=== PATIENT | female | born 1980 | race Caucasian/White ===

== ENCOUNTER 2025-02-27 13:42 | Emergency (ER) | payer OTHER, SELFPAY ==
[2025-02-27 14:00] VITALS: BP 107/73; PULSE 114; RESP 18; TEMP 37.3; O2SAT 97
--- NOTE | 2025-02-27 14:31 | ED_ITS ---
HPI - URI/Sore Throat General Chief Complaint: Upper Respiratory Infection Stated Complaint: Sore Throat/Bodyaches patient presents to the [facility] accompanied by spouse and service dog with complaints of cough shortness of breath, fatigue, nasal congestion, sore throat, headache, fever, and chills that began 2 days ago. Some [id number] cough cold medication attempted with temporary relief of symptoms. Patient does have an albuterol inhaler that she has been using as needed. Denies dizziness, nausea, vomiting, diarrhea, difficulty swallowing. Related Data Home Medications ?Medication ?Instructions ?Recorded ?Confirmed ?Last Taken ?Type albuterol sulfate 90 mcg/actuation inhalation 02/27/25 Unknown History aerosol inhaler loratadine 10 mg tablet (Claritin) 10 mg PO DAILY 02/15 09/08 Unknown History Allergies Allergy/AdvReac Type Severity Reaction Status Date / Time amoxicillin AdvReac Severe Anaphylaxis Verified 02/27/25 14:29 fish derived AdvReac Severe Anaphylaxis Verified 02/27/25 14:29 Penicillins AdvReac Severe Anaphylaxis Verified 02/27/25 14:29 shellfish derived AdvReac Severe Anaphylaxis Verified 02/27/25 14:29 sulfamethoxazole (From AdvReac Severe Anaphylaxis Verified 02/27/25 14:29 Bactrim) trimethoprim (From Bactrim) AdvReac Severe Anaphylaxis Verified 02/27/25 14:29 Review of Systems Constitutional: Constitutional: Reports as per HPI, Reports chills, Reports fatigue, Reports fever(s) and Denies weakness Eyes: Eyes: Reports no additional eye complaints ENT: Reports as per HPI, Denies vertigo, Denies dizziness, Reports nasal congestion and Reports sore throat Cardiovascular: Cardiovascular: Reports no additional cardiovascular complaints Respiratory: Respiratory: Reports as per HPI, Reports chest congestion, Reports cough, Denies dyspnea and Denies wheezing Gastrointestinal: Gastrointestinal: Reports as per HPI, Denies abdominal pain, Denies diarrhea, Denies nausea and Denies vomiting Genitourinary: Genitourinary: Reports no additional female genitourinary complaints Musculoskeletal: Musculoskeletal: Reports as per HPI and Reports myalgias Integumentary/Breasts: Skin/Breast: Reports as per HPI, Denies pruritus, Denies erythema, Denies rash and Denies skin ulcer Neurologic: Reports as per HPI, Denies vertigo, Denies dizziness and Reports headache(s) Psychiatric: Psychiatric: Reports no additional psychiatric complaints Endocrine: Endocrine: Reports no additional endocrine complaints Hematologic/Lymphatic: Hematologic/Lymphatic: Reports no additional hematologic/lymphatic complaints Allergic/Immunologic: Allergic/Immunologic: Reports no additional allergic/immunologic complaints Exam Const: General: no acute distress and ill appearing Nutritional Appearance: well nourished Orientation/consciousness: patient oriented x3 Limitations: no limitations HENMT: Head: normal to inspection Ears: external ears normal and TM's normal bilaterally Face/Nose/Sinus: Normal external nose present and Normal nares present Face and sinus: normal facial exam and sinuses nontender Mouth: Yes Normal oral and palatal mucosa present, Yes lip normal and Yes moist mucous membranes Throat: posterior oropharynx abnormal ( Moderate erythema and edema. No exudate) Eyes: Conjunctivae: conjunctivae normal Pupils: Equal, round and reactive pupils present EOM: EOMs intact bilaterally Direct Ophthalmoscopy: no photophobia Neck: Neck: normal visual inspection and no lymphadenopathy Chest: Chest palpation & inspection: normal inspection of the chest Resp: Effort & Inspection: normal respiratory effort Auscultation: clear to auscultation bilaterally Other: dry cough noted Cardio: Rate: tachycardic Rhythm: regular rhythm GI: GI Palp: Yes Soft to palpation, No Tenderness to palpation present (GI), No Guarding due to palpation present (GI) and No Rigid due to palpation Auscultation: normal bowel sounds Skin: General skin exam: normal color Rashes: no rashes Wounds: no wounds Neuro: General: patient oriented x3 Speech: normal speech Gait exam (Neuro): Normal gait present Extrem: General: no clubbing, cyanosis or edema and no pedal edema Psych: Mental Status: mental status grossly normal Affect: normal affect Attitude: cooperative Course Course Level of Care: Express Care Visit Vital Signs Vital signs: Vital Signs Temperature 99.2 F 02/27/25 14:00 Pulse Rate 114 H 02/27/25 14:00 Respiratory Rate 18 02/27/25 14:00 Blood Pressure 107/73 02/27/25 14:00 Pulse Oximetry 97 02/27/25 14:00 Oxygen Delivery Room Air 02/27/25 14:00 Temperature 99.2 F 02/27/25 14:00 Pulse Rate 114 H 02/27/25 14:00 Respiratory Rate 18 02/27/25 14:00 Blood Pressure 107/73 02/27/25 14:00 Pulse Oximetry 97 02/27/25 14:00 Oxygen Delivery Room Air 02/27/25 14:00 MDM - URI/Sore Throat MDM Narrative Medical decision making narrative: positive COVID and strep. The patient was evaluated by myself in the [facility]. History is obtained from patient who is an independent historian and physical exam was performed. Available medical records were reviewed at this time. Exam findings show no acute concerns or changes; patient is non-toxic appearing and is in no distress. Patient is appropriate for outpatient treatment and follow-up. I have evaluated and discussed social determinants of health with the patient that could potentially impact subsequent diagnosis and treatment plans. Differential diagnosis and treatment plan were discussed with the patient. Patient agrees with discussion and after shared medical decision making agrees with plan of care. All questions were answered to the patient's satisfaction. Differential Diagnosis Differential diagnosis: Likely upper respiratory infection, croup, otitis media, sinusitis, viral infection, bronchitis, influenza and pharyngitis Medical Records Attestation: I reviewed the patient's medical records. Lab Data Attestation: I reviewed the patient's lab results. Labs: Lab Results 02/27/25 Range/Units 14:32 POC Influenza A Ag Negative (Negative) POC Influenza B Ag Negative (Negative) POC SARS CoV-2 Ag Positive (Negative) POC Grp A Strep Screen Positive (Negative) Discharge Plan Discharge Clinical Impression: Strep pharyngitis, COVID Patient Disposition: Home Condition: Stable Instructions: Antibiotic Form, Strep Throat (ED), COVID-19 (Coronavirus Disease 2019) (ED) Additional Instructions: After 24 hours on antibiotics throw tooth brush away and start using a new one. Do not share drinks. Take Motrin alternating with Tylenol for pain and fever alternating every 4 hours. Increase fluids, avoid caffeine. Follow up with Primary provider if not getting better this week COVID-19 DISCHARGE The following recommendations have been made by the CDC and local Health Departments, regarding COVID-19: If You Test Positive for COVID-19 (Isolate) Everyone, regardless of vaccination status. Stay home for 5 days. If you have no symptoms or your symptoms are resolving after 5 days, you can leave your house. Continue to wear a mask around others for 5 additional days. If you have a fever, continue to stay home until your fever resolves. Common Adult Symptoms: Fever/chills Cough Shortness of breath Fatigue, muscle aches Headache Loss of taste/smell Sore throat, congestion, runny nose GI symptoms (nausea, vomiting, diarrhea) Common Pediatric Symptoms Cough Fever GI symptoms (diarrhea, upset stomach, nausea, vomiting) Symptoms may differ in severity however, most cases do not require hospitalization. WHEN TO SEEK ER EVALUATION/TREATMENT Severe/persistent shortness of breath or difficulty breathing Elevated, persistent fevers without resolution with fever-reducing medications Chest pain Extreme fatigue/lethargy Complications of pre-existing disease Patient Language: Cook Islander Prescriptions: New azithromycin 250 mg tablet See Rx Instructions .ROUTE .COMPLEX Qty: 6 0RF Rx Instructions: For 250 mg dose pack: take 500 mg today (day 1), then 250 mg for 4 days (days 2-5) Paxlovid 300 mg (150 mg x 2)-100 mg tablets,dose pack See Rx Instructions .ROUTE .COMPLEX Qty: 30 0RF Rx Instructions: take TWO 150 mg tablets of nirmatrelvir with ONE 100 mg tablet of ritonavir twice daily for 5 days No Action albuterol sulfate 90 mcg/actuation HFA aerosol inhaler INHALATION loratadine [Claritin] 10 mg tablet 10 mg PO DAILY Follow-up/Referrals: PHYSICIAN,ASSESSMENT CLINICIAN [Primary Care Provider, Internal Medicine] Stand Alone Forms: Work/School Release IP Time of Disposition: 14:40
[2025-02-27 14:34] LABS: EDCOVIDSCREEN Positive (Negative); EDINFLUASCREEN Negative (Negative); EDINFLUBSCREEN Negative (Negative); EDSTREPNEGPOS1 Positive (Negative)
== END 2025-02-27 14:58 | disposition home or self-care (01) ==
PROVIDERS: Emergency Provider Nurse Practitioner Family
DX: J02.0 Streptococcal pharyngitis (principal); U07.1 COVID-19
CPT/HCPCS: 87426; 87804; 87880; 99203; G0463

== ENCOUNTER 2025-03-19 09:33 | Emergency (ER) | payer OTHER, SELFPAY ==
--- NOTE | 2025-03-19 09:36 | ED_ITS ---
HPI - Back Pain/Injury General Chief Complaint: Back Pain/Injury Stated Complaint: Back Pain Time Seen by Provider: 03/19/25 09:57 Source: patient, RN notes reviewed and old records reviewed Mode of arrival: ambulatory Limitations: no limitations History of Present Illness HPI Narrative: 44-year-old female presents to the [facility] with complaints of back pain. Has history of chronic back pain, sciatic pain. States that she has had back pain in the past, increased last night. No loss retention of bowel or bladder. No midline tenderness. Patient able to changes positions without issue. No erythema, ecchymosis. No trauma. Related Data Home Medications ?Medication ?Instructions ?Recorded ?Confirmed ?Last Taken ?Type loratadine 10 mg tablet (Claritin) 10 mg PO DAILY 02/15 09/08 Unknown History Allergies Allergy/AdvReac Type Severity Reaction Status Date / Time amoxicillin AdvReac Severe Anaphylaxis Verified 03/19/25 10:04 fish derived AdvReac Severe Anaphylaxis Verified 03/19/25 10:04 Penicillins AdvReac Severe Anaphylaxis Verified 03/19/25 10:04 shellfish derived AdvReac Severe Anaphylaxis Verified 03/19/25 10:04 sulfamethoxazole (From AdvReac Severe Anaphylaxis Verified 03/19/25 10:04 Bactrim) trimethoprim (From Bactrim) AdvReac Severe Anaphylaxis Verified 03/19/25 10:04 Review of Systems Review of Systems: All systems reviewed & are unremarkable except as noted in HPI and below Constitutional: Constitutional: Reports no additional constitutional complaints ENT: Reports system reviewed and no additional complaints, except as documented Cardiovascular: Cardiovascular: Reports no additional cardiovascular complaints, Denies chest pain and Denies dyspnea Respiratory: Respiratory: Reports no additional respiratory complaints, Denies chest congestion, Denies cough and Denies dyspnea Musculoskeletal: Musculoskeletal: Reports as per HPI Integumentary/Breasts: Skin/Breast: Reports system reviewed and no additional complaints, except as docu PMFSH Comments At the time of my signature, I reviewed and agree with the nursing past medical, surgical, social, and family history. There is no relevant family history pertinent to the patient complaint. Exam Const: General: cooperative, healthy appearing, comfortable, no acute distress, well developed, alert and well nourished Nutritional Appearance: well nourished and obese Orientation/consciousness: patient oriented x3 Limitations: no limitations HENMT: Head: normal to inspection Eyes: General: appearance normal, both eyes and all related structures Alignment and Position: alignment normal Neck: Neck: normal visual inspection, full ROM, no lymphadenopathy and no meningeal signs Chest: Chest palpation & inspection: normal inspection of the chest Resp: Effort & Inspection: normal respiratory effort and able to speak in complete sentences Auscultation: clear to auscultation bilaterally, no crackles, no rales, no rhonchi and no wheezes Cardio: Rate: regular rate Back/Spine/Pelvis: Back: No erythema, No warmth, No sacral edema, No ecchymosis and back tenderness (Generalized lower back in into the hips.) Other: Patient is able to walk with a normal gait. Reports generalized tenderness to the lower back into the hip area. Patient was able to sit to stand stand to sit without issue. No erythema, ecchymosis, no trauma. Skin: General skin exam: normal color and no rashes or lesions noted Neuro: General: patient oriented x3, gait normal, moves all extremities and no meningeal signs Cognition (Neuro): normal cognition Speech: normal speech Gait exam (Neuro): Normal gait present Extrem: General: normal to inspection, full ROM, capillary refill normal and normal gait Psych: Appearance: grossly normal and well kempt Mental Status: mental status grossly normal Speech and movement: Normal speech and movement present and Clear speech present Affect: normal affect Attitude: cooperative Course Course Level of Care: Express Care Visit Vital Signs Vital signs: Vital Signs Temperature 98.1 F 03/19/25 09:46 Pulse Rate 65 03/19/25 09:46 Respiratory Rate 16 03/19/25 09:46 Blood Pressure 107/64 03/19/25 09:46 Pulse Oximetry 98 03/19/25 09:46 Oxygen Delivery Room Air 03/19/25 09:46 Temperature 98.1 F 03/19/25 09:46 Pulse Rate 65 03/19/25 09:46 Respiratory Rate 16 03/19/25 09:46 Blood Pressure 107/64 03/19/25 09:46 Pulse Oximetry 98 03/19/25 09:46 Oxygen Delivery Room Air 03/19/25 09:46 Reviewed MDM - Back Pain/Injury MDM Narrative Medical decision making narrative: Patient sitting in exam room. Patient is nontoxic vitals are stable. Patient presents with low back pain acute on chronic. No injury. Patient is requesting a work note for 3 days. Patient appropriate for outpatient treatment with close follow-up Discharge instructions reviewed with patient, as well as provided in writing per nursing staff. The instructions also include specific and strict return/GO TO THE ER as well as f/u information. All questions have been answered, and the patient deny any further questions with discharge and discharge plan. Some parts of this dictation were generated by voice recognition software and may contain typographical and/or grammatical inaccuracies. Differential Diagnosis Differential diagnosis: Likely lumbar radiculopathy, sciatica and strain of lumbar region Critical Care Time Critical Care Time Critical Care Time: No Discharge Plan Discharge Clinical Impression: Strain of lumbar region, Sciatica Patient Disposition: Home Condition: Stable Instructions: Antibiotic Form, Sciatica (ED), Lower Back Exercises (ED) Additional Instructions: Take ibuprofen as directed to decrease inflammation and to help pain. Take Flexeril (muscle relaxer) as directed. Do not drink, drive, operate machinery, or do anything dangerous while taking this medication Exercise:Combine aerobic exercise, like walking or swimming, with specific exercises to keep the muscles in your back and abdomen strong and flexible. Proper Lifting:Be sure to lift heavy items with your legs, not your back. Do not bend over to pick something up. Keep your back straight and bend at your knees. Weight:Maintain a healthy weight. Being overweight puts added stress on your lower back. Avoid Smoking:Both the smoke and the nicotine cause your spine to age faster than normal. Proper Posture:Good posture is important for avoiding future problems. A therapist can teach you how to safely stand, sit, and lift. Use warm moist heat to help with pain. Using topical such as Biofreeze, Kentrell-Spears or Aspercreme can also help Follow up with Primary provider in 2-3 days, This may become a chronic condition and they will be the one to help manage your pain and order additional testing. Go to the nearest ER if you develop problems with bladder/bowel function, weakness or loss of feeling in one or both of your legs. Patient Language: Luxembourger Prescriptions: New ibuprofen 600 mg tablet 600 mg PO TID PRN (Reason: fever or pain) Qty: 30 0RF cyclobenzaprine 10 mg tablet 10 mg PO TID PRN (Reason: muscle spasm) Qty: 15 0RF methylprednisolone [Medrol (Brant)] 4 mg tablets,dose pack See Rx Instructions PO .COMPLEX Qty: 21 0RF Rx Instructions: orally per package directions No Action loratadine [Claritin] 10 mg tablet 10 mg PO DAILY azithromycin 250 mg tablet See Rx Instructions .ROUTE .COMPLEX Qty: 6 0RF Rx Instructions: For 250 mg dose pack: take 500 mg today (day 1), then 250 mg for 4 days (days 2-5) Follow-up/Referrals: UNKNOWN,DOCTOR [Non-Staff] Stand Alone Forms: Work/School Release IP Time of Disposition: 10:23
[2025-03-19 09:46] VITALS: BP 107/64; PULSE 65; RESP 16; TEMP 36.7; O2SAT 98
== END 2025-03-19 10:28 | disposition home or self-care (01) ==
PROVIDERS: Emergency Provider Nurse Practitioner
DX: S39.012A Strain of muscle, fascia and tendon of lower back, initial encounter (principal); X58.XXXA Exposure to other specified factors, initial encounter; M54.32 Sciatica, left side; M54.31 Sciatica, right side; J45.909 Unspecified asthma, uncomplicated; Z86.16 Personal history of COVID-19
CPT/HCPCS: 99213; G0463

== ENCOUNTER 2025-04-09 09:49 | Emergency (ER) | payer OTHER, SELFPAY ==
--- NOTE | 2025-04-09 09:55 | ED.BACK ---
HPI - Back Pain/Injury General Chief Complaint: Back Pain/Injury Stated Complaint: back pain Time Seen by Provider: 04/09/25 09:56 Source: patient Mode of arrival: ambulatory Limitations: no limitations History of Present Illness HPI Narrative: Valery is a 44-year-old female patient presenting to the clinic today with complaints of thoracic back pain x1 day. She reports she lifted a tray yesterday that was not heavy and when she went to lift a tray she felt a pop in her back with instant pain. Has pain with any movement of the thoracic spine. States pain increases with movement and when taking the breaths. Denies any radiation of pain and arms or to lower back. No loss of bowel or bladder. Rates pain 10/10 currently. Pain is a dull ache with sharp pain with movement. Has not taken any medications for pain. Related Data Home Medications ?Medication ?Instructions ?Recorded ?Confirmed ?Last Taken ?Type loratadine 10 mg tablet (Claritin) 10 mg PO DAILY 02/27/25 Unknown History atorvastatin 20 mg tablet mg 04/09/25 Unknown History Allergies Allergy/AdvReac Type Severity Reaction Status Date / Time amoxicillin AdvReac Severe Anaphylaxis Verified 04/09/25 09:53 fish derived AdvReac Severe Anaphylaxis Verified 04/09/25 09:53 Penicillins AdvReac Severe Anaphylaxis Verified 04/09/25 09:53 shellfish derived AdvReac Severe Anaphylaxis Verified 04/09/25 09:53 sulfamethoxazole (From AdvReac Severe Anaphylaxis Verified 04/09/25 09:53 Bactrim) trimethoprim (From Bactrim) AdvReac Severe Anaphylaxis Verified 04/09/25 09:53 Review of Systems Review of Systems: Pertinent positives per HPI. Patient denies any fever, chills, rash, headache, visual changes, dizziness, cough, runny nose, sore throat, shortness of breath, chest pain, palpitations, nausea, vomiting, diarrhea, constipation, abdominal pain, or any urinary issues. PMFSH Comments At the time of my signature, I reviewed and agree with the nursing past medical, surgical, social, and family history. There is no relevant family history pertinent to the patient complaint. Exam Narrative: General: Well-developed, obese, in no apparent distress Head: Normocephalic, atraumatic. Cardio: Regular rate and rhythm, s1 and s2 normal, no murmur appreciated. Resp: Clear to auscultation bilaterally, no rhonchi, rales, wheezing or rubs. Musculoskeletal: No deformity, midthoracic spine and paraspinous musculature tender to palpation, grossly normal range of motion, pain worsens with movement or taking deep breaths, muscle strength strong and equal in bilateral upper and lower extremities. SLT negative, patellar reflexes 2/4 bilaterally, negative foot drop, normal gait and station Course Course Emergency Course: Portions of this record may have been created with voice recognition software. Level of Care: Express Care Visit Vital Signs Vital signs: Vital Signs Temperature 37.0 C 04/09/25 10:05 Pulse Rate 81 04/09/25 10:05 Respiratory Rate 18 04/09/25 10:05 Blood Pressure 136/60 04/09/25 10:05 Pulse Oximetry 97 04/09/25 10:05 Oxygen Delivery Room Air 04/09/25 10:05 Temperature 37.0 C 04/09/25 10:05 Pulse Rate 81 04/09/25 10:05 Respiratory Rate 18 04/09/25 10:05 Blood Pressure 136/60 04/09/25 10:05 Pulse Oximetry 97 04/09/25 10:05 Oxygen Delivery Room Air 04/09/25 10:05 Vital signs reviewed MDM - Back Pain/Injury MDM Narrative Medical decision making narrative: At the time of visit patient is resting comfortably on the exam table. Patient appears to be nontoxic. Complaints of thoracic back pain x1 day. She reports she lifted a tray yesterday that was not heavy and when she went to lift a tray she felt a pop in her back with instant pain. Has pain with any movement of the thoracic spine. States pain increases with movement and when taking the breaths. Denies any radiation of pain and arms or to lower back. No loss of bowel or bladder. Rates pain 10/10 currently. Pain is a dull ache with sharp pain with movement. Has not taken any medications for pain. On exam patient has tenderness to palpation over the midthoracic spine and over the paraspinous musculature, pain worse with movement, strong upper extremity strength and lower extremity strength, no saddle anesthesia. No radiation of pain. Due to patient's mechanism of injury I do not feel as though an x-ray is needed at this time as this is more likely muscular pain. Toradol 60 mg IM ordered. Medications: Toradol 60 mg IM given. Pain down to 8/10 after medication Plan: I suspect patient has a thoracic back strain. Prescriptions for baclofen and ibuprofen were sent to the pharmacy. Toradol 60 mg IM given in the clinic today pain. Work note was given. Supportive measures were discussed with the patient and they voiced understanding discharge instructions and agrees to treatment plan. Return precautions reviewed Differential Diagnosis Differential diagnosis: Likely lumbar radiculopathy, sciatica, strain of lumbar region, renal colic, pyelonephritis, thoracic back pain, AAA, discitis and other (Thoracic back strain) Discharge Plan Discharge Clinical Impression: Strain of muscle and tendon of back wall of thorax, initial encounter Patient Disposition: Home Condition: Stable Instructions: Antibiotic Form, Thoracic Back Strain (ED) Additional Instructions: Take any prescription medication only as prescribed-ibuprofen and baclofen Be mindful of sedation precautions given to you if taking a muscle relaxer. May use heat or ice to the affected area Consider massage or chiropractor adjustment if this was discussed with provider May use blue emu, lidocaine patches, or asper cream to affected area- do not apply heat or ice directly over cream- can cause burn. Complete appropriate back stretching exercises. Follow up with your PCP in 3-5 days if symptom persist. Patient Language: Senegalese Prescriptions: New baclofen 10 mg tablet 10 mg PO TID PRN (Reason: muscle spasm) 7 Days Qty: 21 0RF ibuprofen 800 mg tablet 800 mg PO TID PRN (Reason: pain) 7 Days Qty: 21 0RF No Action atorvastatin 20 mg tablet loratadine [Claritin] 10 mg tablet 10 mg PO DAILY Follow-up/Referrals: Morgan,Lexie [Other] Stand Alone Forms: Work/School Release IP Time of Disposition: 10:18 Quality NIHSS Nursing Documentation ED NIHSS nursing documentation: reviewed/agree
[2025-04-09 10:05] VITALS: BP 136/60; PULSE 81; RESP 18; TEMP 37; O2SAT 97
[2025-04-09] MEDS: KETOROLAC (*BKC) 60 MG/2 ML VIAL IM (10:20)
== END 2025-04-09 10:38 | disposition home or self-care (01) ==
PROVIDERS: Emergency Provider Nurse Practitioner Family
DX: S29.012A Strain of muscle and tendon of back wall of thorax, initial encounter (principal); X50.9XXA Other and unspecified overexertion or strenuous movements or postures, initial encounter; Y99.0 Civilian activity done for income or pay; E11.9 Type 2 diabetes mellitus without complications; E78.00 Pure hypercholesterolemia, unspecified; J45.909 Unspecified asthma, uncomplicated; Z86.16 Personal history of COVID-19
CPT/HCPCS: 96372; 99213; G0463; J1885

== ENCOUNTER 2025-05-14 09:39 | Emergency (ER) | payer OTHER, SELFPAY ==
--- NOTE | ~2025-05-14 | XR_ITS ---
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 Technique: 2 views obtained. Findings: The lungs are clear, no effusion. No pneumothorax. Heart is normal size. Mediastinal and hilar contours are within normal limits. Bony thorax no acute abnormality. Impression: No acute cardiopulmonary abnormality. Reviewed, dictated and finalized at location P. WASHER Impression: No acute cardiopulmonary abnormality.
[2025-05-14 09:48] VITALS: BP 111/72; PULSE 88; RESP 18; TEMP 36; O2SAT 95
--- NOTE | 2025-05-14 10:10 | ED_ITS ---
HPI - URI/Sore Throat General Chief Complaint: Upper Respiratory Infection Stated Complaint: Rattling in chest, coughing, sore throat, vomiting Time Seen by Provider: 05/14/25 10:12 Source: patient, RN notes reviewed and old records reviewed Mode of arrival: ambulatory Limitations: no limitations History of Present Illness HPI Narrative: 44 year old female who [facility] with complaints of productive cough, sore throat,emesis, white phlegm,fevers up to 103F intermittently since Saturday. Patient reports history of asthma but has not used her inhaler for her cough. Patient reports tht she has been taking Aleve and also NyQuil for her symptoms.Patient reports that throat is very sore and is painful to swallow. MD elicited complaint: cough, sore throat and other (vomiting and has rattling in chest) Pertinent past history: asthma Onset (ago): week(s) (1 week) Consistency: progressively worsening Severity: moderate Description of mucous: yellow and other (white thick phlegm) Able to tolerate fluids by mouth: Yes Treatments prior to arrival: other (Alleve and NyQuil) Related Data Home Medications ?Medication ?Instructions ?Recorded ?Confirmed ?Last Taken ?Type loratadine 10 mg tablet (Claritin) 10 mg PO DAILY 02/15 09/08 Unknown History atorvastatin 20 mg tablet mg 04/09/25 Unknown History Allergies Allergy/AdvReac Type Severity Reaction Status Date / Time amoxicillin AdvReac Severe Anaphylaxis Verified 05/14/25 09:59 fish derived AdvReac Severe Anaphylaxis Verified 05/14/25 09:59 Penicillins AdvReac Severe Anaphylaxis Verified 05/14/25 09:59 shellfish derived AdvReac Severe Anaphylaxis Verified 05/14/25 09:59 sulfamethoxazole (From AdvReac Severe Anaphylaxis Verified 05/14/25 09:59 Bactrim) trimethoprim (From Bactrim) AdvReac Severe Anaphylaxis Verified 05/14/25 09:59 Review of Systems Review of Systems: CONSTITUTIONAL: reports malaise, chills, sweats, or fever. EYES: Denies visual changes, redness, or discharge. ENT: Reports rhinorrhea, congestion, sinus pain, no otalgia and +sore throat. CARDIOVASCULAR: Denies chest pain, palpitations, or edema. RESPIRATORY: Reports productive cough.? Denies dyspnea. GASTROINTESTINAL: Denies abdominal pain, nausea,+ vomiting, no diarrhea SKIN: Denies rash or itching. MUSCULOSKELETAL: Denies myalgia. NEUROLOGIC: Denies headache. All systems reviewed & are unremarkable except as noted in HPI and below PMFSH Past Medical History Medical History Back pain Anxiety Diabetes type 2 High blood cholesterol Asthma Surgical History Surgical History History of tonsillectomy H/O: hysterectomy Social History Social History Smoking status: Never smoker Alcohol intake: unknown Substance use: unknown Gender identity (if verbalized by the patient): Female Comments At time of signature, agree with nursing past medical, surgical, social and fami ly history. There is no relevant family history pertinent to the presenting complaint Exam Narrative: GENERAL: Well-appearing, well-nourished, and in no acute distress. HEAD: Normocephalic EYES: PERRLA, conjunctivae clear ENT: Nares clear, turbinates edematous and erythematous, clear discharge. Mucous membranes moist. TM pearly headley with dull light reflex bilaterally; no tragal tenderness. Oropharynx erythematous without lesions. Tonsils not present and throat without exudate, no drooling, no hoarseness, no trismus, uvula midline, post nasal drainage noted. NECK: Supple. No lymphadenopathy CHEST: Clear decreased to auscultation, breath sounds equal. No wheezing, rhonchi, rales, or stridor. No respiratory distress, speaks in full sentences.cough noted SAO2 95% on room air HEART: Regular rate and rhythm. No murmur heard. SKIN: Warm, dry, no rash. NEURO: Alert and oriented x3. PSYCH: Normal mood and affect Course Course Emergency Course: Patient is aware of diagnosis, understands and agrees to treatment plan.? Anticipatory guidance given.? Patient agrees to follow-up as directed and is aware of reasons to seek care at the emergency department. Portions of this record may have been created with voice recognition software Level of Care: Express Care Visit Vital Signs Vital signs: Vital Signs Temperature 36.0 C L 05/14/25 09:48 Pulse Rate 88 05/14/25 09:48 Respiratory Rate 18 05/14/25 09:48 Blood Pressure 111/72 05/14/25 09:48 Pulse Oximetry 95 05/14/25 09:48 Oxygen Delivery Room Air 05/14/25 09:48 Temperature 36.0 C L 05/14/25 09:48 Pulse Rate 88 05/14/25 09:48 Respiratory Rate 18 05/14/25 09:48 Blood Pressure 111/72 05/14/25 09:48 Pulse Oximetry 95 05/14/25 09:48 Oxygen Delivery Room Air 05/14/25 09:48 Reviewed MDM - URI/Sore Throat MDM Narrative Medical decision making narrative: Differential diagnosis considered: Butler virus, strep pharyngitis, allergic rhinitis, upper respiratory tract infection, sinusitis, rhinosinusitis, nasopharyngitis. viral pharyngitis, otitis media, otitis externa, pneumonia, bronchitis, viral cough syndrome, viral syndrome, and influenza.? Exam findings show no acute concerns or changes; patient is non-toxic appearing and is in no distress.? Patient is appropriate for outpatient treatment and follow-up. Medical Records Attestation: I reviewed the patient's medical records. Lab Data Attestation: I reviewed the patient's lab results. Lab results narrative: strep screen negative culture sent, Influenza A&B negative, COVID antigen negative Labs: Lab Results 05/14/25 Range/Units 10:10 POC Influenza A Ag Negative (Negative) POC Influenza B Ag Negative (Negative) POC SARS CoV-2 Ag Negative (Negative) POC Grp A Strep Screen Negative (Negative) reviewed Imaging Data My impression: no acute cardiopulmonary abnormality Radiologist's impression: [facility] [address] [place] [address] XRay Report Signed Patient: Valery Tomas : 1980 MR#: [id number] Age: 44 Acct:[id number] Loc: [facility] ADM Date: 05/14/[address]: Ordering Physician: Ashleigh Lambert APRN Date of Service: 05/14/25 Procedure(s): XR chest 2V Accession Number(s): [id number] cc: Ashleigh Lambert APRN; UNKNOWN,DOCTOR~ EXAMINATION: XR chest 2V, 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 Technique: 2 views obtained. Findings: The lungs are clear, no effusion. No pneumothorax. Heart is normal size. Mediastinal and hilar contours are within normal limits. Bony thorax no acute abnormality. Impression: No acute cardiopulmonary abnormality. Reviewed, dictated and finalized at location P. TIC WELDING MACHINE OPERATOR Please be advised this is a medical document. It is intended for [id number] communication. It is written in medical language and may contain unfamiliar abbreviations or verbiage. Medical documents are intended to carry relevant information, facts as evident, and the clinical opinion of the practitioner at the time of the encounter. This report may have been done utilizing a voice recognition system. Attempts have been made to correct errors. However, there may be uncorrected grammatical, spelling, and recognition errors present. The file time of this note does not necessarily represent the time of service. Dictated By: Chivo Lucero MD 05/14/25 1032 Signed By: <Electronically signed by Chivo Lucero MD in OV> Critical Care Time Critical Care Time Critical Care Time: No Discharge Plan Discharge Clinical Impression: Upper respiratory infection Qualifiers: URI type: unspecified URI Qualified Code(s): J06.9 - Acute upper respiratory infection, unspecified Pharyngitis Qualifiers: Pharyngitis/tonsillitis etiology: unspecified etiology Qualified Code(s): J02.9 - Acute pharyngitis, unspecified Patient Disposition: Home Condition: Stable Instructions: Upper Respiratory Infection (ED) Additional Instructions: Increase fluids especially juices and water [id number] cough and cold medicine of your choice for your symptoms Zyrtec Claritin or Rupal daily per package instructions Continue your inhaler/nebulizer as directed Tylenol or Ibuprofen for any fever or pain per package instruction heat to the face 20-30 minutes 4-6 times a day for pain Salt water gargles, throat lozenges or throat sprays as desired If your symptoms persist, change or worsen significantly before you can contact your personal physician then please, without delay, go to the emergency department for further evaluation. Follow-up with PCP in 7-10 days or sooner if needed Negative strep, negative influenza and negative COVID testing Patient Language: Faroese Prescriptions: No Action atorvastatin 20 mg tablet baclofen 10 mg tablet 10 mg PO TID PRN (Reason: muscle spasm) 7 Days Qty: 21 0RF ibuprofen 800 mg tablet 800 mg PO TID PRN (Reason: pain) 7 Days Qty: 21 0RF loratadine [Claritin] 10 mg tablet 10 mg PO DAILY Follow-up/Referrals: UNKNOWN,DOCTOR [Primary Care Provider] Stand Alone Forms: Work/School Release IP Time of Disposition: 11:20 Quality Michelle Coma Scale Eyes: Open Verbal: Oriented and Alert Motor: Follows Commands Michelle Coma Total Score: 15
[2025-05-14 10:32] LABS: EDCOVIDSCREEN Negative (Negative); EDINFLUASCREEN Negative (Negative); EDINFLUBSCREEN Negative (Negative); EDSTREPNEGPOS1 Negative (Negative)
== END 2025-05-14 11:28 | disposition home or self-care (01) ==
PROVIDERS: Emergency Provider Registered Nurse
DX: J06.9 Acute upper respiratory infection, unspecified (principal); J02.9 Acute pharyngitis, unspecified; Z20.822 Contact with and (suspected) exposure to COVID-19; E11.9 Type 2 diabetes mellitus without complications; E78.00 Pure hypercholesterolemia, unspecified; J45.909 Unspecified asthma, uncomplicated
CPT/HCPCS: 71046; 87081; 87426; 87804; 87880; 99213; G0463